=== PATIENT | female | born 1990 | race Caucasian/White ===

== ENCOUNTER 2021-08-09 00:10 | Emergency (ER) | payer MEDICAID, SELFPAY ==
[2021-08-09 00:23] VITALS: BP 115/76; PULSE 55; RESP 23; TEMP 36.9; O2SAT 99; BMI 23.4
--- NOTE | 2021-08-09 00:29 | XR_ITS ---
PROCEDURE INFORMATION: Exam: XR Chest Exam date and time: 08/09/2021 12:29 AM Age: 30 years old Clinical indication: Cough and shortness of breath and other: Congestion; Additional info: Cough, congestion, SOA TECHNIQUE: Imaging protocol: XR of the chest. Views: 2 views. COMPARISON: No relevant prior studies available. FINDINGS: Lungs: No consolidation. Pleural spaces: No significant pleural effusion. No pneumothorax. Heart/Mediastinum: No cardiomegaly. Bones/joints: No displaced fracture. Soft tissues: Unremarkable. IMPRESSION: No definite acute cardiopulmonary disease. If symptoms persist, consider CT for further evaluation.
[2021-08-09 01:18] VITALS: PULSE 78
[2021-08-09 01:19] VITALS: PULSE 81
[2021-08-09 01:22] VITALS: BP 102/70; PULSE 50; RESP 16; TEMP 36.6; O2SAT 99
--- NOTE | 2021-08-09 01:53 | HMH.EDURI ---
ED Disposition Clinical Impression: Laryngitis Disposition: Home, Self-Care Condition on Discharge: Good Instructions: DI for Laryngitis Additional Instructions: fluids and see pcp for follow up Prescriptions: Azithromycin [Zithromax 250mg tab] 250 mg PO DIRECTED #6 tab Transmission Status: Pending to [facility] Referrals: Gala Soto MD [Primary Care Provider] - - Critical Care Critical Care Time: No Attestation: On 08/09/21, the high probability of a clinically significant, sudden or life threatening deterioration of the following system(s) required my full and direct attention, intervention and personal management. The time I documented below is in addition to time spent performing reported procedures but includes the following listed in this critical care notation. Medical Decision Making - Medical Records Medical records reviewed: Yes: I reviewed the patient's medical records. - Juan R Inquiry Pt receiving controlled substance: No Vital Signs: 08/09/21 00:23 Temperature 98.4 F Temperature Source Oral Pulse Rate [Right Brachial] 55 L Respiratory Rate 23 Blood Pressure [Right Arm] 115/76 Blood Pressure Mean [Right Arm] 89 Blood Pressure Source [Right Arm] Automatic Cuff Blood Pressure Position [Right Arm] Sitting 02 Sat by Pulse Oximetry 99 Oxygen Delivery Method Room Air - Lab Data Lab results reviewed: Yes: I reviewed the patient's lab results. Orders (Tests/Meds): ORDERS Category Date Time Status Chest XR 2 view (NOT portable) [XR chest 2V] Stat Exams 08/09/21 00:29 Taken - Radiology Data #1 Image(s): Chest Image Reviewed: Yes I reviewed the patient's radiology image Preliminary Findings: Normal/NAD Medical Decision Narrative: will treat for atypical infection URI/Sore Throat HPI - General Chief Complaint: Upper Respiratory Infection Stated Complaint: Hoarsness,Cough,chest congestion,head congestion Time Seen by Provider: 08/09/21 00:15 Mode of Arrival: Family Vehicle Source of Information: Patient, Medical Record Limitations: No Limitations Description of Symptoms (Recalled from ER Triage Doc. by RN): pt seen in [facility] er and prescribed prednisone and tested for covid for complaints of hoarseness, chest and sinus congestion. afebrile. negative result of covid. no additional contacts for flu or covid. states prednisone is not help. feels like it has settled in her chest. pt didn't receive flu or covid vaccine. complains of sore throat,hoarseness. sinus and chest congestion. - History of Present Illness HPI Narrative: laryngitis over the last few days - seen at [facility] -has episode of cough syncope and has inhaler at home - uses tob Complaint: cough Onset (ago): day(s) Severity: moderate Able to tolerate fluids by mouth: Yes Associated symptoms: denies other symptoms Treatments prior to arrival: other (steroids ) - Related Data Home Medications Medication Instructions Recorded Confirmed predniSONE [Prednisone 5mg Tab 5 mg PO UD DOSE PK 08/09/21 08/09/21 Dose-Pack] Previous Rx's Medication Instructions Recorded Azithromycin [Zithromax 250mg 250 mg PO DIRECTED #6 tab 08/09/21 tab] Allergies Allergy/AdvReac Type Severity Reaction Status Date / Time ciprofloxacin [From [facility]] Allergy Mild N/V/D Verified 08/09/21 00:28 [facility] History - Hepatitis A Screen Drug use history?: No High risk sexual behaviors?: No History of sexually transmitted infection?: No Currently employed?: No Childcare worker?: No Do you have indoor plumbing?: Yes Do you have electricity?: Yes Attestation statement:: This patient has been screened for Hepatitis A risk factors. 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
== END 2021-08-09 01:23 | disposition home or self-care (01) ==
PROVIDERS: Emergency Provider Emergency Medicine; PCP Family Medicine
DX: J04.0 Acute laryngitis (principal); F17.210 Nicotine dependence, cigarettes, uncomplicated
CPT/HCPCS: 71046; 99282